=== PATIENT | male | born 1930 | race Caucasian/White ===

== ENCOUNTER 2017-07-14 10:22 | Inpatient (IN) | payer MEDICARE, MEDICAID ==
--- NOTE | 2017-07-14 12:37 | CT ---
CT BRAIN: Date: 07/14/17 HISTORY: Altered mental status. TECHNIQUE: Noncontrast enhanced CT images of brain obtained from the base of the skull through the vertex. Brain and bone windows are obtained. FINDINGS: Noncontrast enhanced CT images of the brain demonstrate diffuse cortical atrophy and deep white matte r ischemic changes. An old area of stroke is seen in the left frontal lobe. No evidence of acute intr acranial masses, hemorrhages, or strokes. CT appearance is stable. IMPRESSION: 1. Cortical atrophy and deep white matter ischemic changes. 2. Old left frontal lobe area of stroke. POS: [facility]
--- NOTE | 2017-07-14 12:38 | RAD ---
AP VIEW CHEST: Date: 07/14/17 HISTORY: Altered mental status. FINDINGS: Comparison made to previous exam from 08/04/15. AP view of chest demonstrates ectasia and calcification of the aorta. Pulmonary vascular congestion i s seen. No evidence of effusions, pneumonia, or pneumothorax seen. IMPRESSION: Unremarkable AP view chest. POS: [facility]
[2017-07-14 13:15] LABS: Band 5 % (5-11); Hemoglobin 8.9 g/dL (14.0-18.0); Lymphocytes 10 % (21-51); MDiff Complete? YES; Mean Corpuscular Hemoglobin 32.4 pg (27.0-31.0); Mean Corpuscular Volume 98.4 fl (80.0-94.0); Mean Platelet Volume 5.6 fL (7.4-10.4); Monocytes 17 % (0-10); Neutrophil 67 % (42-75); Platelet Count 119 thou/uL (130-400); RBC Distribution Width 14.7 % (11.5-14.5); Red Blood Cell (RBC) Count 2.75 mill/uL (4.70-6.10); White Blood Cell (WBC) Count 4.6 thou/uL (4.8-10.8)
[2017-07-14 13:20] LABS: ALT (SGPT) 7 U/L (8-55); AST (SGOT) 17 U/L (5-34); Albumin 2.3 g/dL (3.4-4.8); Alkaline Phosphatase 83 U/L (40-150); Anion Gap 14 mmol/L (10-20); BUN (Urea Nitrogen) 52 mg/dL (8.4-25.7); Bilirubin, Total 1.5 mg/dL (0.2-1.2); CK (CPK) 9 U/L (30-200); Calc. Creatinine Clearance 0 mL/min (70-130); Calcium 9.8 mg/dL (7.8-10.44); Carbon Dioxide 24 mmol/L (23-31); Chloride 107 mmol/L (98-107); Estimated GFR-MDRD 30; Globulin 5.6 g/dL (2.4-3.5); Glucose 69 mg/dL (83-110); Lipase 11 U/L (8-78); Potassium 3.8 mmol/L (3.5-5.1); Protein, Total 7.9 g/dL (5.8-8.1); Sodium 141 mmol/L (136-145)
[2017-07-14 13:24] LABS: CKMB 0.7 ng/mL (0-6.6); Troponin I 0.043 ng/mL (< 0.028)
[2017-07-14] MEDS ORDERED: Acetaminophen 325 MG TAB PO PRN (13:43)
[2017-07-14] MEDS ORDERED: Guaifenesin DM 100-10/5 ML UDCUP PO PRN (13:43)
[2017-07-14] MEDS ORDERED: Vancomycin HCl 1 GM in Sodium Chloride 0.9% 250 ML 250 ML IVPB SCH (13:45)
[2017-07-14] MEDS ORDERED: Cefepime 1 GM in Sodium Chloride 0.9% 100 ML IVPB SCH (13:45)
[2017-07-14] MEDS ORDERED: Levofloxacin 750 mg/D5W 250 MG in Premix Bag 1 BAG IVPB SCH (13:45)
[2017-07-14] MEDS ORDERED: Sodium Chloride 0.9% 1,000 ML IV SCH (13:45)
[2017-07-14 14:45] LABS: Bilirubin Negative (Negative); Blood, Urine Small (Negative); Clarity CLEAR (Clear); Glucose, Urine (Dipstick) Negative (Negative); Leukocyte Negative (Negative); Nitrite Negative (Negative); Protein, Urine (Dipstick) Trace mg/dL (Neg-Trace); Specific Gravity, Urine 1.018 (1.002-1.036); pH, Urine 6.5 (5.0-9.0)
[2017-07-14 14:47] LABS: Bacteria/HPF None Seen HPF (None Seen); Hyaline Casts/LPF 0-3 HYALINE CAST LPF (0-3 Hyaline); Pathc Cast-AUWi Flag 0.27 (0-2.49); Squamous Epithelial 0-3 HPF (0-3); WBC/HPF 0-3 HPF (0-3)
[2017-07-14 15:46] VITALS: BMI 27.9
[2017-07-14] MEDS: Cefepime 1 GM, Admixture Fee 1 EACH in Sterile Water 10 ML SLOW IVP SCH (16:14)
[2017-07-14 16:55] LABS: Lactic Acid 3.1 mmol/L (0.5-2.2)
[2017-07-14] MEDS ORDERED: Vancomycin HCl 1.25 GM in Sodium Chloride 0.9% 250 ML 250 ML IVPB SCH (18:00)
--- NOTE | 2017-07-14 18:07 | HP ---
REASON FOR ADMISSION: Sepsis, acute kidney injury, acute encephalopathy, dehydration, dysphagia with likely aspiration, HISTORY OF PRESENT ILLNESS: Please note majority of this history is obtained by my talking to ER physician, ER records, [facility] records, and prior medical records as patient is not oriented and is essentially keeps repeating thank you over and over again. Per [facility] records, patient was confused and was mumbling. He was only responding to painful stimuli. All of this happened around 6:30 in the morning. He normally is alert, feeds himself and sits in a chair at [facility]. On arrival here, patient is not oriented and very lethargic with barely opening eyes to touch. 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 CURRENT MEDICATIONS: Patient is on Depakote extended release 250 mg p.o. twice daily, gabapentin 100 mg p.o. 3 times daily and 300 mg p.o. at bedtime, vitamin D 2000 units p.o. daily, Cardura 1 mg p.o. at bedtime, Lasix 20 mg p.o. daily, Lopressor 50 mg p.o. twice daily, Meloxicam 15 mg p.o. daily, Flomax 0.8 mg p.o. daily, levothyroxine 25 mcg p.o. daily, Zoloft 100 mg p.o. daily, Flonase p.r.n., Ultram p.r.n., MiraLax 17 g daily, aspirin 81 mg p.o. daily, Singulair 10 mg p.o. daily, magnesium oxide 400 mg p.o. q.p.m., Lipitor 5 mg p.o. at bedtime. ALLERGIES: No known drug allergies. PERSONAL HISTORY: Patient is at [facility] resident. Does not abuse alcohol or drugs per prior records. He quit smoking in 1965 prior to which smoked 3 packs a day for nearly 20 years. He drank heavily as well up until his hospitalization in [address] Garces's notes. FAMILY HISTORY: Father in his early 70s and has had history of CVA. Mother in her early 80s of old age. He has 3 brothers and 5 sisters, two of the brothers at childbirth, out of 5 sisters 2 at childbirth, one of stroke. Patient has five children, one in a motor vehicle accident. REVIEW OF SYSTEMS: Cannot be obtained as patient is not oriented at present. PHYSICAL EXAMINATION: GENERAL: The patient is an 87-year-old male who is currently not oriented and is lethargic. VITAL SIGNS: Blood pressure 170/80, pulse 60 per minute, respiratory rate 20 per minute, temperature 97.8 degrees Fahrenheit, saturating 95% on room air. NECK: Supple, no elevated JVD. HEENT: Extraocular muscles intact. Pupils reacting to light. Oral cavity mucous membranes are dry. No exudates or congestion. CARDIOVASCULAR: S1, S2 heard. Regular rhythm. RESPIRATORY SYSTEM: Air entry 1+ bilateral. Scattered rhonchi plus bilateral. ABDOMEN: Soft, bowel sounds heard. No tenderness, rigidity or guarding. EXTREMITIES: No peripheral edema or calf tenderness. VASCULAR: Peripheral pulses 1+ bilateral. No ischemic ulcerations or gangrene. CENTRAL NERVOUS SYSTEM: No gross focal signs seen. 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 He is not oriented and is lethargic at present. PSYCHIATRIC: Cannot be assessed as patient is not oriented at present. LABORATORY DATA: CT brain done shows old left frontal lobe CVA. No acute infarct seen. There is cortical atrophy and deep white matter ischemic changes. Chest x-ray done shows chronic changes in the lungs. There was pulmonary vascular congestion as well. BNP is 937, albumin is 2.3, lipase is 11. TSH 4.1. Valproic acid 28.1. Troponin I 0.04, CK-MB 0.7, BUN 52, creatinine 2.0, glucose 69, lactic acid is 2.9, total bilirubin 1.5. Ammonia levels are 25. White count of 4.6, H and H 8.9 and 27, platelet count is 119, MCV is 98 with 67% neutrophils and 5% bands. CLINICAL IMPRESSION AND PLAN: The patient will be admitted to medical floor for likely sepsis with acute kidney injury and severe dehydration. He also has elevated BNP with mild pulmonary vascular congestion. Rodriguez cultures will be obtained including blood and urine. We will also obtain respiratory cultures if he can provide one. He will be on broad spectrum antibiotics including cefepime, Levaquin, and vancomycin based on renal function. We will gently hydrate him with normal saline at 100 mL per hour. We will continue his Flomax at 0.4 mg b.i.d., Singulair 10 mg p.o. q.p.m., Lopressor 25 mg twice daily, DuoNeb q.6 hourly, doxazosin 1 mg at bedtime, Depakote extended release 250 mg twice daily and aspirin 81 mg daily. We will obtain echo with 2D Doppler for left ventricular function. Once patient awakens fully, then we will gently diurese him. He has out of hospital DNR, that has accompanied him from [facility], which has been dated and signed on 07/11/2006 and we will continue the same DNR status here. We will also consult pelt inspector on-call, Dr. Butler for acute kidney injury likely due to dehydration. Patient normally does not ambulate per [facility] records, but he usually sits in a chair and converses and feeds self per [facility] records. We will obtain a speech evaluation as well. He is on thickened liquids at [facility]. RAYSHAWN
[2017-07-14] MEDS: Dextrose 5 % And 0.9 % NaCl 1,000 ML IV SCH (18:20)
[2017-07-14] MEDS: Docusate 100 MG CAP PO SCH (20:04)
[2017-07-14] MEDS: Famotidine 20 MG TAB PO SCH (20:04)
[2017-07-14] MEDS: Doxazosin Mesylate 1 MG TAB PO SCH (20:04)
[2017-07-14] MEDS: Montelukast Sodium 10 mg Tablet PO SCH (20:06)
[2017-07-14] MEDS: Tamsulosin HCl 0.4 MG CAP PO SCH (20:06)
[2017-07-14] MEDS: Metoprolol Tartrate 25 MG TAB PO SCH (20:06)
[2017-07-14] MEDS ORDERED: FLU VACC TS2017-18 (>65YR) 0.5 ML SYRINGE IM ONE (21:00)
[2017-07-15] MEDS: Dextrose 5 % And 0.9 % NaCl 1,000 ML IV SCH ×3 (04:30→22:17)
[2017-07-15] MEDS ORDERED: Levothyroxine Sodium 25 MCG TAB PO SCH (06:00)
--- NOTE | 2017-07-15 06:13 | CON ---
DATE OF CONSULTATION: 07/14/2017 CONSULTING PHYSICIAN: Marilee Holloway M.D. REASON FOR CONSULTATION: Acute kidney injury. REASON FOR ADMISSION: Sepsis and abnormal labs and encephalopathy. HISTORY OF PRESENT ILLNESS: This is an 87-year-old male with history of CVA, hypertension, hyperlipi demia, BPH, who came to the hospital with altered mentation and was found to have possible sepsis and acute kidney injury and Nephrology was consulted. The patient's baseline creatinine is around 1.5 t o 1.6 and today it was found to be 2.09 and he had white blood count 4.6, hemoglobin is 8.9. The pat iehamilton is not able to give good history, was confused and most of the records from the review of the re cords. No nausea, vomiting, no chest pain reported to me. PAST MEDICAL HISTORY: Positive for CVA, hypertension, hyperlipidemia, BPH, hypothyroidism, depressio n, and COPD. PAST SURGICAL HISTORY: Back surgery, vasectomy. HOME MEDICATIONS: Depakote, gabapentin, vitamin D, Cardura, Lasix, Lopressor, meloxicam, Flomax, lev othyroxine, Flonase, aspirin, Singulair, magnesium . ALLERGIES: No known drug allergies. SOCIAL HISTORY: No smoking, alcohol or illicit drug abuse. FAMILY HISTORY: Positive for CVA. REVIEW OF SYSTEMS: Could not be obtained as he is confused. PHYSICAL EXAMINATION: GENERAL: Elderly male in no apparent distress. VITAL SIGNS: Temperature 98.3, pulse 63, respirations 20, blood pressure . HEENT: Atraumatic. Oral mucosa is dry. NECK: Supple. CARDIOVASCULAR: S1, S2. Rate and rhythm regular. RESPIRATORY: Clear. GASTROINTESTINAL: Abdomen is soft. MUSCULOSKELETAL: No tenderness. No edema. DERMATOLOGIC: No skin rash. NEUROLOGICAL: Confused. LABORATORY DATA: Potassium 3.8, BUN is 52, creatinine is 2.09. Hemoglobin is 8.9. ASSESSMENT AND PLAN: 1. Acute kidney injury on chronic kidney disease stage 3, most likely volume depletion. Agree with hydration as tolerated. 2. Hypoalbuminemia. 3. Pyuria, rule out infection. 4. Altered mentation, most likely medication and possibly uremia. 5. Anemia, rule out bleed. 6. Hypertension. Titrate medications. Continue on hydration. Continue supportive care. Avoid nephrotoxins. Renally dose all the medicine s and we will follow up monitor vancomycin level. We will follow. Thank you for the consultation.
[2017-07-15 06:34] LABS: ALT (SGPT) 7 U/L (8-55); AST (SGOT) 16 U/L (5-34); Alkaline Phosphatase 72 U/L (40-150); Anion Gap 11 mmol/L (10-20); BUN (Urea Nitrogen) 44 mg/dL (8.4-25.7); Bilirubin, Total 1.7 mg/dL (0.2-1.2); Calc. Creatinine Clearance 33 mL/min (70-130); Calcium 9.1 mg/dL (7.8-10.44); Carbon Dioxide 23 mmol/L (23-31); Chloride 113 mmol/L (98-107); Estimated GFR-MDRD 33; Globulin 5.1 g/dL (2.4-3.5); Glucose 84 mg/dL (83-110); Potassium 3.3 mmol/L (3.5-5.1); Protein, Total 7.1 g/dL (5.8-8.1); Sodium 144 mmol/L (136-145)
[2017-07-15 06:47] LABS: Free T4 (Free Thyroxine) 0.68 ng/dL (0.70-1.48); Thyroid Stimulating Hormone 3.9408 uIU/mL (0.35-4.94)
[2017-07-15 07:50] LABS: Hemoglobin 7.8 g/dL (14.0-18.0); Mean Corpuscular HGB CONC 32.1 g/dL (32.0-36.0); Mean Corpuscular Hemoglobin 31.6 pg (27.0-31.0); Mean Corpuscular Volume 98.4 fl (80.0-94.0); Mean Platelet Volume 5.8 fL (7.4-10.4); Platelet Count 108 thou/uL (130-400); RBC Distribution Width 14.5 % (11.5-14.5); Red Blood Cell (RBC) Count 2.48 mill/uL (4.70-6.10); White Blood Cell (WBC) Count 5.7 thou/uL (4.8-10.8)
[2017-07-15 08:25] LABS: Band 4 % (5-11); Eosinophils 2 % (0-10); Lymphocytes 11 % (21-51); MDiff Complete? YES; Monocytes 17 % (0-10); Neutrophil 66 % (42-75); PLT Morphology Comment Appears Decreased; Polychromasia SLIGHT = 2-3 cells (100X) (0-2/hpf)
[2017-07-15] MEDS: Enoxaparin Sodium 30 MG/0.3 ML SYRINGE SC SCH (08:43)
--- NOTE | 2017-07-15 10:13 | PRG ---
DATE OF SERVICE: 07/15/2017 SUBJECTIVE: Patient was seen and examined at bedside and overnight events noted. Patient denies any shortness of breath or chest pain or palpitation. No history of nausea or vomiting or diarrhea or f ever or chills or cramps. OBJECTIVE: GENERAL: This is an elderly male in no apparent distress. VITAL SIGNS: Temperature 98.8, pulse 82, respiratory rate 16, blood pressure 174/87. HEENT: Atraumatic, normocephalic. Oral mucosa is moist. NECK: Supple. CARDIOVASCULAR: S1, S2 heard. Rate and rhythm regular. RESPIRATORY: Clear to auscultation. GASTROINTESTINAL: Abdomen is soft. MUSCULOSKELETAL: No tenderness. No edema. DERMATOLOGIC: No skin rash. NEUROLOGIC: Alert and awake and oriented x3. No focal neurologic deficits. Moving all the extremiti es. PSYCHIATRIC: Mood and affect normal. LABORATORY DATA: Potassium is 3.3, BUN is 44, creatinine is 1.9. ASSESSMENT AND PLAN: 1. Acute kidney injury on chronic kidney disease stage 3. Renal function is getting better. Creati nine 1.9 from 2.09. 2. Continue hydration. 3. Hypokalemia, replaced. 4. Hyperchloremia. 5. Hypoalbuminemia. 6. Altered mentation. 7. Anemia. 8. Hypertension, stable. Continue medications and monitor blood pressure. Overall, renal function is better. We will follow.
[2017-07-15] MEDS: Polyethylene Glycol 3350 17 GM Packet PO SCH (10:34)
[2017-07-15] MEDS: Docusate 100 MG CAP PO SCH ×2 (10:35→20:48)
[2017-07-15] MEDS: Tamsulosin HCl 0.4 MG CAP PO SCH ×2 (10:35→20:48)
[2017-07-15] MEDS: Famotidine 20 MG TAB PO SCH ×2 (10:35→20:48)
[2017-07-15] MEDS: Metoprolol Tartrate 25 MG TAB PO SCH ×2 (10:36→19:16)
--- NOTE | 2017-07-15 11:10 | PDOC.PN ---
- Subjective Encounter Start Date: 07/15/17 Encounter Start Time: 09:40 Subjective: awake, not sure he is oriented -: is moving all extremities - Objective Resuscitation Status: Resuscitation Status DNR:Do Not Resuscitate MAR Reviewed: Yes Vital Signs & Weight: Vital Signs (12 hours) Temp Pulse Resp BP Pulse Ox 07/15/17 08:44 97 07/15/17 08:41 74 18 97 07/15/17 08:00 98.8 F 74 18 174/87 H 93 L 07/15/17 06:35 98.7 F 92 20 174/79 H 93 L 07/15/17 00:00 98.8 F 77 20 172/72 H 93 L Weight Weight 184 lb I&O: 07/14/17 07/15/17 07/16/17 06:59 06:59 06:59 Intake Total 900 Output Total 1000 Balance -100 Result Diagrams: 07/15/17 05:34 07/15/17 05:34 Additional Labs: Accuchecks 07/15/17 07/14/17 07/14/17 05:05 20:06 16:32 POC Glucose 82 76 68 L Phys Exam - Physical Examination HEENT: PERRLA, sclera anicteric dry mucosa Neck: no JVD, supple Respiratory: no wheezing, no rales Cardiovascular: RRR, no significant murmur Gastrointestinal: soft, non-tender, positive bowel sounds Musculoskeletal: no edema, pulses present Neurological: non-focal, moves all 4 limbs Psychiatric: A&O x 3 Dx/Plan (1) Sepsis Code(s): A41.9 - SEPSIS, UNSPECIFIED ORGANISM Status: Acute Qualifiers: Sepsis type: sepsis due to unspecified organism Qualified Code(s): A41.9 - Sepsis, unspecified organism (2) Severe dehydration Code(s): E86.0 - DEHYDRATION Status: Acute (3) Acute encephalopathy Code(s): G93.40 - ENCEPHALOPATHY, UNSPECIFIED Status: Acute (4) KIM (acute kidney injury) Code(s): N17.9 - ACUTE KIDNEY FAILURE, UNSPECIFIED Status: Acute (5) Metabolic acidosis Code(s): E87.2 - ACIDOSIS Status: Acute (6) FTT (failure to thrive) in adult Status: Chronic (7) Moderate protein malnutrition Code(s): E44.0 - MODERATE PROTEIN-CALORIE MALNUTRITION Status: Chronic (8) Anemia Code(s): D64.9 - ANEMIA, UNSPECIFIED Status: Chronic (9) H/O: CVA (cerebrovascular accident) Code(s): Z86.73 - PRSNL HX OF TIA (TIA), AND CEREB INFRC W/O RESID DEFICITS Status: Chronic Comment: old left frontal lobe cva (10) Hypoglycemia Code(s): E16.2 - HYPOGLYCEMIA, UNSPECIFIED Status: Acute (11) Dysphagia Code(s): R13.10 - DYSPHAGIA, UNSPECIFIED Status: Chronic Comment: on thickened diet at [facility] - Plan speech eval for oral intake -: continue iv fluids -: is on levaq, vanc and cefepime -: increase synthroid to 75mcg daily -: replace electrolytes, await culture results, PT eval * . Review of Systems - Medications/Allergies Allergies/Adverse Reactions: Allergies Allergy/AdvReac Type Severity Reaction Status Date / Time No Known Allergies Allergy Unverified 07/14/17 15:28 Medications: Current Medications Acetaminophen (Tylenol) 650 mg PO Q4H PRN PRN Reason: Headache/Fever or Pain Albuterol/Ipratropium (Duoneb) 3 ml NEB [id number] [facility] Last Admin: 07/15/17 08:41 Dose: 3 ml Aspirin (Aspirin Chewable) 81 mg PO DAILY [facility] Last Admin: 07/15/17 10:36 Dose: 81 mg Divalproex Sodium (Depakote Er) 250 mg PO BID [facility] Last Admin: 07/15/17 10:35 Dose: 250 mg Docusate Sodium (Colace) 100 mg PO BID [facility] Last Admin: 07/15/17 10:35 Dose: 100 mg Doxazosin Mesylate (Cardura) 1 mg PO HS [facility] Last Admin: 07/14/17 20:04 Dose: Not Given Enoxaparin Sodium (Lovenox) 30 mg SC 0900 [facility] Last Admin: 07/15/17 08:43 Dose: 30 mg Famotidine (Pepcid) 20 mg PO BID [facility] Last Admin: 07/15/17 10:35 Dose: 20 mg Guaifenesin/Dextromethorphan (Robitussin Dm) 15 ml PO Q4H PRN PRN Reason: Cough Cefepime HCl 1 gm/Miscellaneous Medication 1 each/ Sterile Water 10 mls @ 120 mls/hr SLOW IVP Q24HR@1600 [facility] Last Admin: 07/14/17 16:14 Dose: 10 mls Levofloxacin 250 mg/ Device 50 mls @ 100 mls/hr IVPB Q24HR [facility] Last Admin: 07/14/17 17:12 Dose: 50 mls Vancomycin HCl 1 gm/ Device 200 mls @ 200 mls/hr IVPB 1800 [facility] Dextrose/Sodium Chloride (D5 0.9% Ns) 1,000 mls @ 100 mls/hr IV .Q10H [facility] Last Admin: 07/15/17 04:30 Dose: Not Given Levothyroxine Sodium (Synthroid) 75 mcg PO 0600 [facility] Metoprolol Tartrate (Lopressor) 25 mg PO BID [facility] Last Admin: 07/15/17 10:36 Dose: 25 mg Miscellaneous Medication (Pharmacy To Dose) 1 each IVPB PRN PRN PRN Reason: Pharmacy to dose Montelukast Sodium (Singulair) 10 mg PO QPM [facility] Last Admin: 07/14/17 20:06 Dose: Not Given Polyethylene Glycol (Miralax) 17 gm PO DAILY [facility] Last Admin: 07/15/17 10:34 Dose: 17 gm Sertraline HCl (Zoloft) 100 mg PO DAILY [facility] Last Admin: 07/15/17 10:35 Dose: 100 mg Tamsulosin HCl (Flomax) 0.4 mg PO BID [facility] Last Admin: 07/15/17 10:35 Dose: 0.4 mg
[2017-07-15] MEDS: Cefepime 1 GM, Admixture Fee 1 EACH in Sterile Water 10 ML SLOW IVP SCH (16:41)
[2017-07-15] MEDS ORDERED: Vancomycin HCl 1 GM in Premix Bag 1 BAG IVPB SCH (18:00)
[2017-07-15] MEDS ORDERED: Metoprolol Tartrate 25 MG TAB PO SCH (19:00)
[2017-07-15] MEDS ORDERED: Amlodipine 10 MG TAB PO SCH (19:00)
[2017-07-15] MEDS ORDERED: hydrALAZINE 25 MG TAB PO SCH (19:00)
[2017-07-15] MEDS: Montelukast Sodium 10 mg Tablet PO SCH (20:48)
[2017-07-15] MEDS: Doxazosin Mesylate 1 MG TAB PO SCH (20:48)
[2017-07-16 05:40] LABS: Anion Gap 13 mmol/L (10-20); BUN (Urea Nitrogen) 35 mg/dL (8.4-25.7); Calc. Creatinine Clearance 39 mL/min (70-130); Calcium 9.8 mg/dL (7.8-10.44); Carbon Dioxide 22 mmol/L (23-31); Chloride 115 mmol/L (98-107); Estimated GFR-MDRD 40; Glucose 106 mg/dL (83-110); Sodium 147 mmol/L (136-145)
[2017-07-16] MEDS: Levothyroxine Sodium 75 MCG TAB PO SCH (05:40)
[2017-07-16] MEDS: Dextrose 5 % And 0.9 % NaCl 1,000 ML IV SCH ×2 (05:41→20:28)
[2017-07-16 05:44] LABS: Potassium 2.9 mmol/L (3.5-5.1)
[2017-07-16 06:14] LABS: Anisocytosis SLIGHT = 6-15 cells (100X) (0-5/hpf); Hemoglobin 8.3 g/dL (14.0-18.0); Lymphocytes 7 % (21-51); MDiff Complete? YES; Mean Corpuscular HGB CONC 31.6 g/dL (32.0-36.0); Mean Corpuscular Hemoglobin 31.4 pg (27.0-31.0); Mean Corpuscular Volume 99.3 fl (80.0-94.0); Mean Platelet Volume 6.1 fL (7.4-10.4); Monocytes 14 % (0-10); Neutrophil 79 % (42-75); PLT Morphology Comment Appears Decreased; Platelet Count 101 thou/uL (130-400); RBC Distribution Width 14.8 % (11.5-14.5); Red Blood Cell (RBC) Count 2.64 mill/uL (4.70-6.10); White Blood Cell (WBC) Count 6.4 thou/uL (4.8-10.8)
[2017-07-16] MEDS: Potassium Chloride 20 MEQ TAB PO SCH ×3 (09:22→20:26)
[2017-07-16] MEDS: Enoxaparin Sodium 30 MG/0.3 ML SYRINGE SC SCH (09:26)
[2017-07-16] MEDS: Tamsulosin HCl 0.4 MG CAP PO SCH ×2 (09:26→20:27)
[2017-07-16] MEDS: Famotidine 20 MG TAB PO SCH ×2 (09:26→20:27)
[2017-07-16] MEDS: Docusate 100 MG CAP PO SCH ×2 (09:26→20:27)
[2017-07-16] MEDS: hydrALAZINE 25 MG TAB PO SCH ×3 (09:27→20:26)
[2017-07-16] MEDS: Metoprolol Tartrate 25 MG TAB PO SCH ×2 (09:32→20:28)
[2017-07-16] MEDS: Polyethylene Glycol 3350 17 GM Packet PO SCH (09:32)
--- NOTE | 2017-07-16 11:13 | PDOC.PN ---
- Subjective Encounter Start Date: 07/16/17 Encounter Start Time: 08:25 Subjective: awake, not in distress -: follows verbal stimuli but needs repeated stimuli - Objective Resuscitation Status: Resuscitation Status DNR:Do Not Resuscitate MAR Reviewed: Yes Vital Signs & Weight: Vital Signs (12 hours) Temp Pulse Resp BP BP Pulse Ox 07/16/17 09:27 93 170/86 H 07/16/17 08:00 98.7 F 93 20 170/86 H 93 L 07/16/17 01:04 96 12 07/16/17 00:20 98.5 F 96 20 149/71 H 96 Weight Weight 184 lb I&O: 07/15/17 07/16/17 07/17/17 06:59 06:59 06:59 Intake Total 870 823 4855 Output Total 5862 119 4774 Balance -100 -650 400 Result Diagrams: 07/16/17 03:42 07/16/17 03:42 Additional Labs: Accuchecks 07/15/17 17:00 POC Glucose 130 H Phys Exam - Physical Examination HEENT: PERRLA, sclera anicteric dry mucosa Neck: no JVD, supple Respiratory: no wheezing, no rales Cardiovascular: RRR, no significant murmur Gastrointestinal: soft, non-tender, positive bowel sounds Musculoskeletal: no edema, pulses present Neurological: non-focal, moves all 4 limbs Dx/Plan (1) Sepsis Code(s): A41.9 - SEPSIS, UNSPECIFIED ORGANISM Status: Acute Qualifiers: Sepsis type: sepsis due to unspecified organism Qualified Code(s): A41.9 - Sepsis, unspecified organism (2) Severe dehydration Code(s): E86.0 - DEHYDRATION Status: Acute (3) Acute encephalopathy Code(s): G93.40 - ENCEPHALOPATHY, UNSPECIFIED Status: Acute (4) KIM (acute kidney injury) Code(s): N17.9 - ACUTE KIDNEY FAILURE, UNSPECIFIED Status: Acute (5) Metabolic acidosis Code(s): E87.2 - ACIDOSIS Status: Acute (6) FTT (failure to thrive) in adult Status: Chronic (7) Moderate protein malnutrition Code(s): E44.0 - MODERATE PROTEIN-CALORIE MALNUTRITION Status: Chronic (8) Anemia Code(s): D64.9 - ANEMIA, UNSPECIFIED Status: Chronic (9) H/O: CVA (cerebrovascular accident) Code(s): Z86.73 - PRSNL HX OF TIA (TIA), AND CEREB INFRC W/O RESID DEFICITS Status: Chronic Comment: old left frontal lobe cva (10) Hypoglycemia Code(s): E16.2 - HYPOGLYCEMIA, UNSPECIFIED Status: Acute (11) Dysphagia Code(s): R13.10 - DYSPHAGIA, UNSPECIFIED Status: Chronic Comment: on thickened diet at snf - Plan is on thickened liq diet -: likely has inadequate oral intake, will get calorie count -: might end up getting peg if counts are low and family agrees -: resp cs might be contaminated -: sod has improved to 147, replace K * . Review of Systems - Medications/Allergies Allergies/Adverse Reactions: Allergies Allergy/AdvReac Type Severity Reaction Status Date / Time No Known Allergies Allergy Unverified 07/14/17 15:28 Medications: Current Medications Acetaminophen (Tylenol) 650 mg PO Q4H PRN PRN Reason: Headache/Fever or Pain Albuterol/Ipratropium (Duoneb) 3 ml NEB [id number] [facility] Last Admin: 07/16/17 07:56 Dose: Not Given Aspirin (Aspirin Chewable) 81 mg PO DAILY [facility] Last Admin: 07/16/17 09:25 Dose: 81 mg Divalproex Sodium (Depakote Er) 250 mg PO BID [facility] Last Admin: 07/16/17 09:25 Dose: 250 mg Docusate Sodium (Colace) 100 mg PO BID [facility] Last Admin: 07/16/17 09:26 Dose: 100 mg Doxazosin Mesylate (Cardura) 1 mg PO HS [facility] Last Admin: 07/15/17 20:48 Dose: 1 mg Enoxaparin Sodium (Lovenox) 30 mg SC 0900 [facility] Last Admin: 07/16/17 09:26 Dose: 30 mg Famotidine (Pepcid) 20 mg PO BID [facility] Last Admin: 07/16/17 09:26 Dose: 20 mg Guaifenesin/Dextromethorphan (Robitussin Dm) 15 ml PO Q4H PRN PRN Reason: Cough Hydralazine HCl (Apresoline) 25 mg PO TID [facility] Last Admin: 07/16/17 09:27 Dose: 25 mg Cefepime HCl 1 gm/Miscellaneous Medication 1 each/ Sterile Water 10 mls @ 120 mls/hr SLOW IVP Q24HR@1600 [facility] Last Admin: 07/15/17 16:41 Dose: 10 mls Levofloxacin 250 mg/ Device 50 mls @ 100 mls/hr IVPB Q24HR [facility] Last Admin: 07/15/17 16:45 Dose: 50 mls Dextrose/Sodium Chloride (D5 0.9% Ns) 1,000 mls @ 100 mls/hr IV .Q10H [facility] Last Admin: 07/16/17 05:41 Dose: 1,000 mls Levothyroxine Sodium (Synthroid) 75 mcg PO 0600 [facility] Last Admin: 07/16/17 05:40 Dose: 75 mcg Metoprolol Tartrate (Lopressor) 25 mg PO BID [facility] Last Admin: 07/16/17 09:32 Dose: 25 mg Miscellaneous Medication (Pharmacy To Dose) 1 each IVPB PRN PRN PRN Reason: Pharmacy to dose Montelukast Sodium (Singulair) 10 mg PO QPM [facility] Last Admin: 07/15/17 20:48 Dose: 10 mg Polyethylene Glycol (Miralax) 17 gm PO DAILY [facility] Last Admin: 07/16/17 09:32 Dose: 17 gm Potassium Chloride (K-Dur) 40 meq PO Q6H [facility] Stop: 07/17/17 14:16 Last Admin: 07/16/17 09:22 Dose: 40 meq Sertraline HCl (Zoloft) 100 mg PO DAILY [facility] Last Admin: 07/16/17 09:26 Dose: 100 mg Tamsulosin HCl (Flomax) 0.4 mg PO BID [facility] Last Admin: 07/16/17 09:26 Dose: 0.4 mg
[2017-07-16] MEDS: Cefepime 1 GM, Admixture Fee 1 EACH in Sterile Water 10 ML SLOW IVP SCH (15:14)
[2017-07-16] MEDS: Doxazosin Mesylate 1 MG TAB PO SCH (20:27)
[2017-07-16] MEDS: Montelukast Sodium 10 mg Tablet PO SCH (20:27)
--- NOTE | 2017-07-16 21:42 | PRG ---
DATE OF SERVICE: 07/16/2017 SUBJECTIVE: Patient was seen and examined at bedside and overnight events noted. Patient denies any shortness of breath or chest pain or palpitation. No history of nausea or vomiting or diarrhea or f ever or chills or cramps. OBJECTIVE: GENERAL: This is an elderly male in no apparent distress. VITAL SIGNS: Temperature 98.3, pulse 111, respiratory rate 20, blood pressure 151/86. HEENT: Atraumatic, normocephalic. Oral mucosa is moist. NECK: Supple. CARDIOVASCULAR: S1, S2 heard. Rate and rhythm regular. RESPIRATORY: Clear to auscultation. GASTROINTESTINAL: Abdomen is soft. MUSCULOSKELETAL: No tenderness. No edema. DERMATOLOGIC: No skin rash. NEUROLOGIC: Alert and awake and oriented x3. No focal neurologic deficits. Moving all the extremit ies. PSYCHIATRIC: Mood and affect normal. LABORATORY DATA: Potassium is 2.9, sodium is 147, BUN is 35, creatinine is 1.64. ASSESSMENT AND PLAN: 1. Acute kidney injury on chronic kidney disease. Renal function is getting better. 2. Hypernatremia. 3. Hypokalemia. Replace and monitor. 4. Hypoalbuminemia. 5. Altered mentation. 6. Anemia. 7. Hypertension. 8. Continue IV hydration as tolerated. We will monitor renal function.
[2017-07-17] MEDS: Potassium Chloride 20 MEQ TAB PO SCH ×3 (02:55→16:00)
[2017-07-17 04:39] LABS: Anion Gap 14 mmol/L (10-20); BUN (Urea Nitrogen) 33 mg/dL (8.4-25.7); Calc. Creatinine Clearance 41 mL/min (70-130); Calcium 10.2 mg/dL (7.8-10.44); Carbon Dioxide 20 mmol/L (23-31); Chloride 120 mmol/L (98-107); Estimated GFR-MDRD 43; Glucose 115 mg/dL (83-110); Potassium 3.8 mmol/L (3.5-5.1); Sodium 150 mmol/L (136-145)
[2017-07-17] MEDS: Levothyroxine Sodium 75 MCG TAB PO SCH (05:25)
[2017-07-17] MEDS: Dextrose 5 % And 0.9 % NaCl 1,000 ML IV SCH (05:26)
[2017-07-17 05:35] LABS: Band 2 % (5-11); Eosinophils 3 % (0-10); Hemoglobin 7.7 g/dL (14.0-18.0); Lymphocytes 6 % (21-51); MDiff Complete? YES; Macrocytosis SLIGHT = 6-15 cells (100X) (0-5/hpf); Mean Corpuscular HGB CONC 31.4 g/dL (32.0-36.0); Mean Corpuscular Hemoglobin 31.8 pg (27.0-31.0); Mean Platelet Volume 6.4 fL (7.4-10.4); Monocytes 8 % (0-10); Neutrophil 81 % (42-75); PLT Morphology Comment Appears Decreased; Platelet Count 92 thou/uL (130-400); Red Blood Cell (RBC) Count 2.43 mill/uL (4.70-6.10); White Blood Cell (WBC) Count 5.9 thou/uL (4.8-10.8)
--- NOTE | 2017-07-17 10:38 | CT ---
CT CHEST NONCONTRAST: History: Chest pain, dyspnea. FINDINGS: No comparison. Small amount of bilateral pleural fluid is present with bibasilar atelectasis. There is minimal peric ardial fluid. Lack of contrast limits evaluation of the mediastinum. There is calcification in the arterial structu res. Enlarged lymph nodes are present throughout each space of the mediastinum. The largest are at th e right paratracheal level (6.2 x 6.2 x 5.4 cm) and at the subcarinal level (9.2 x 5.8 x 3.8 cm). The re are degenerative changes of the thoracic spine. The inferior most images show a cyst arising from the right kidney and stones within the dependent portion of the gallbladder. IMPRESSION: 1. Bulky mediastinal adenopathy. Cause is not evident. The subcarinal adenopathy could likely be samp led with bronchoscopy. Please consider pulmonary medicine evaluation. 2. Bilateral pleural effusions with bibasilar atelectasis. Small pericardial effusion. 3. Atherosclerosis. 4. Cholelithiasis. POS: [facility]
--- NOTE | 2017-07-17 10:40 | PDOC.PN ---
- Subjective Encounter Start Date: 07/17/17 Encounter Start Time: 08:40 Subjective: awakens, not oriented -: not in distress - Objective Resuscitation Status: Resuscitation Status DNR:Do Not Resuscitate MAR Reviewed: Yes Vital Signs & Weight: Vital Signs (12 hours) Temp Pulse Resp BP Pulse Ox 07/17/17 08:00 98.3 F 99 20 169/82 H 94 L 07/17/17 06:34 99 12 95 Weight Admit Weight 184 lb Weight 184 lb I&O: 07/16/17 07/17/17 07/18/17 06:59 06:59 06:59 Intake Total 200 3160 Output Total 850 1650 Balance -650 1510 Result Diagrams: 07/17/17 03:58 07/17/17 03:58 Additional Labs: Accuchecks 07/17/17 07/16/17 07/16/17 06:31 17:22 11:51 POC Glucose 118 H 128 H 111 H Phys Exam - Physical Examination HEENT: PERRLA, sclera anicteric dry mucosa Neck: no JVD, supple Respiratory: no wheezing, no rales rhonchi+ Cardiovascular: RRR, no significant murmur Gastrointestinal: soft, non-tender, positive bowel sounds Musculoskeletal: no edema, pulses present Neurological: non-focal right hemiparesis Dx/Plan (1) Sepsis Code(s): A41.9 - SEPSIS, UNSPECIFIED ORGANISM Status: Acute Qualifiers: Sepsis type: sepsis due to unspecified organism Qualified Code(s): A41.9 - Sepsis, unspecified organism (2) Severe dehydration Code(s): E86.0 - DEHYDRATION Status: Acute (3) Acute encephalopathy Code(s): G93.40 - ENCEPHALOPATHY, UNSPECIFIED Status: Acute (4) KIM (acute kidney injury) Code(s): N17.9 - ACUTE KIDNEY FAILURE, UNSPECIFIED Status: Acute (5) Metabolic acidosis Code(s): E87.2 - ACIDOSIS Status: Acute (6) FTT (failure to thrive) in adult Status: Chronic (7) Moderate protein malnutrition Code(s): E44.0 - MODERATE PROTEIN-CALORIE MALNUTRITION Status: Chronic (8) Anemia Code(s): D64.9 - ANEMIA, UNSPECIFIED Status: Chronic (9) H/O: CVA (cerebrovascular accident) Code(s): Z86.73 - PRSNL HX OF TIA (TIA), AND CEREB INFRC W/O RESID DEFICITS Status: Chronic Comment: 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 - Plan dehydration and electrolytes are slowly being corrected -: sputum grew mrsa (his oral cavity is very dry, not sure if this is true spu -: -scot sample although epithelial cells are low), will get CT chest -: consult -: is on levaq and cefepime, d5w for hypernatremia * . I am unable to reach his son Mr.Gargiulo Weeks over telephone for consent ?peg. Review of Systems - Medications/Allergies Allergies/Adverse Reactions: Allergies Allergy/AdvReac Type Severity Reaction Status Date / Time No Known Allergies Allergy Unverified 07/14/17 15:28 Medications: Current Medications Acetaminophen (Tylenol) 650 mg PO Q4H PRN PRN Reason: Headache/Fever or Pain Albuterol/Ipratropium (Duoneb) [address] NEB [id number] [facility] Last Admin: 07/17/17 06:34 Dose: 3 ml Aspirin (Aspirin Chewable) [address] [facility] Last Admin: 07/16/17 09:25 Dose: 81 mg Divalproex Sodium (Depakote Er) [address] [facility] Last Admin: 07/16/17 20:27 Dose: 250 mg Docusate Sodium (Colace) [address] [facility] Last Admin: 07/16/17 20:27 Dose: 100 mg Doxazosin Mesylate (Cardura) [address] [facility] Last Admin: 07/16/17 20:27 Dose: 1 mg Enoxaparin Sodium (Lovenox) [address] [facility] Last Admin: 07/16/17 09:26 Dose: 30 mg Famotidine (Pepcid) [address] [facility] Last Admin: 07/16/17 20:27 Dose: 20 mg Guaifenesin/Dextromethorphan (Robitussin Dm) 15 ml PO Q4H PRN PRN Reason: Cough Hydralazine HCl (Apresoline) [address] [facility] Last Admin: 07/16/17 20:26 Dose: 25 mg Cefepime HCl 1 gm/Miscellaneous Medication 1 each/ Sterile Water 10 mls @ 120 mls/hr SLOW IVP Q24HR@1600 [facility] Last Admin: 07/16/17 15:14 Dose: 10 mls Levofloxacin 250 mg/ Device 50 mls @ 100 mls/hr IVPB Q24HR [facility] Last Admin: 07/16/17 17:16 Dose: 50 mls Dextrose/Water (D5w) 1,000 mls @ 100 mls/hr IV .Q10H [facility] Levothyroxine Sodium (Synthroid) [address] [facility] Last Admin: 07/17/17 05:25 Dose: 75 mcg Metoprolol Tartrate (Lopressor) [address] [facility] Last Admin: 07/16/17 20:28 Dose: 25 mg Montelukast Sodium (Singulair) [address] [facility] Last Admin: 07/16/17 20:27 Dose: 10 mg Polyethylene Glycol (Miralax) [address] [facility] Last Admin: 07/16/17 09:32 Dose: 17 gm Potassium Chloride (K-Dur) [address] [facility] Stop: 07/17/17 14:16 Last Admin: 07/17/17 02:55 Dose: 40 meq Sertraline HCl (Zoloft) [address] [facility] Last Admin: 07/16/17 09:26 Dose: 100 mg Tamsulosin HCl (Flomax) 0.[address] [facility] Last Admin: 07/16/17 20:27 Dose: 0.4 mg
[2017-07-17] MEDS: Metoprolol Tartrate 25 MG TAB PO SCH ×2 (10:51→20:31)
[2017-07-17] MEDS: Docusate 100 MG CAP PO SCH ×2 (10:51→20:30)
[2017-07-17] MEDS: Tamsulosin HCl 0.4 MG CAP PO SCH ×2 (10:52→20:30)
[2017-07-17] MEDS: hydrALAZINE 25 MG TAB PO SCH ×3 (10:52→20:30)
[2017-07-17] MEDS: Polyethylene Glycol 3350 17 GM Packet PO SCH (10:53)
[2017-07-17] MEDS: Dextrose 5% in Water 1,000 ML IV SCH ×2 (11:37→17:54)
[2017-07-17] MEDS: Famotidine 20 MG TAB PO SCH ×2 (11:38→20:31)
[2017-07-17] MEDS: Enoxaparin Sodium 30 MG/0.3 ML SYRINGE SC SCH (11:39)
[2017-07-17] MEDS: Cefepime 1 GM, Admixture Fee 1 EACH in Sterile Water 10 ML SLOW IVP SCH (18:41)
[2017-07-17] MEDS: Montelukast Sodium 10 mg Tablet PO SCH (20:30)
[2017-07-17] MEDS: Doxazosin Mesylate 1 MG TAB PO SCH (20:31)
--- NOTE | 2017-07-17 21:08 | PRG ---
DATE OF SERVICE: 07/17/2017 SUBJECTIVE: Patient was seen and examined at bedside and overnight events noted. Patient denies shortness of breath or cramps or chest pain or palpitation. No Nausea or vomiting or diarrhea or fever or chills. OBJECTIVE: GENERAL: This is a well-developed male in no apparent distress. VITAL SIGNS: Temperature 98.3, pulse 97, respiratory rate 18, blood pressure 148/84. Musculoskeletal : No tenderness, No edema HEENT: Atraumatic normocephalic Neck: Supple Cardiovascular: S1S2 heard, Rate and rhythm regular Respiratory: Clear to auscultation Gastrointestinal: Abdomen is soft Dermatologic : No skin rash Neurologic: Alert and awake and oriented X3 No focal neurologic deficits. Moving all the extremities. Psychiatric: Mood and affect normal LABORATORY DATA: Potassium is 3.8, BUN is 33, creatinine is 1.5. ASSESSMENT AND PLAN: 1. Hypernatremia. Continue free water. 2. Acute kidney injury. Renal function is stable. 3. Hypokalemia, replaced. 4. Hypoalbuminemia. 5. Anemia. 6. Hypertension. 7. We will change IV fluids to D5 water today and continue free water as tolerated with flushes. We will follow. MTDD
[2017-07-18] MEDS: Dextrose 5% in Water 1,000 ML IV SCH (00:24)
--- NOTE | 2017-07-18 00:45 | CON ---
DATE OF CONSULTATION: 07/17/2017 REASON FOR CONSULTATION: Concern regarding possible pneumonia. 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 It became so confused that he was then transferred for evaluation. On arrival, his BP was 170/80, pulse 60, breathing 20 times per minute, temperature is normal. O2 sats were 95% on room air. The admit exam shows some lethargy and disorientation and white cell count 4.6, hemoglobin 8.9 with MCV 98, platelets 119,000 with 67% neutrophils and 5% bands , 10% lymphocytes, 17% monocytes. The initial labs with creatinine 1.92, potassium 3.3, bilirubin 1.7. Transaminases normal now. Alkaline phosphatase 72 with albumin 2.0. Free T4 was 0.68 and free T3 less than 1.0. TSH was 3.9. Urinalysis was unremarkable. Valproic acid levels were 28. The patient had a CT of brain which was not remarkable except for chronic changes. Chest x-ray was not remarkable either. A CT scan of the chest was done 3 days after admission and this was a noncontrast study. There was minimal pericardial fluid. There was calcification of arterial structures, but the main findings were enlarged lymph nodes throughout the mediastinum, the largest one in the right peritracheal level and at the subcarinal level. The patient currently is awake, but he is confused and could not even tell me his name, was only able to do so after some insistence, but he certainly did not know where he was or the date. All the review of systems questions were negative, but again those answers are certainly not reliable. I spoke with the nurse at the [facility] and she said that he had no respiratory symptoms or aspiration. No diarrhea recorded, but he apparently had some respiratory symptoms a couple of weeks ago and had been treated with Levaquin for "pneumonia." PAST MEDICAL HISTORY: Includes CVA, hypertension, dyslipidemia, BPH, some form back surgery, and we do not have a lot of information regarding that. Vasectomy , hypothyroidism, depression, chronic obstructive pulmonary disease. MEDICATIONS: Currently, he is receiving Tylenol, DuoNeb, cefepime, dextrose, Depakote, Colace, Cardura, Lovenox, Pepcid, levofloxacin, metoprolol, montelukast, polyethylene glycol, Zoloft, and tamsulosin. ALLERGIES: None. SOCIAL HISTORY: [facility] resident. Former smoker, quit in 67 and also had a history of excessive alcoholic beverage intake reportedly. FAMILY HISTORY: CVA. Otherwise normal. PHYSICAL EXAMINATION: VITAL SIGNS: T-max 98.8, blood pressure 140/80, pulse 97, respirations 14-20, O2 saturation 95%. SKIN: Remarkable for Martinez catheter and peripheral IV access. No lymphadenopathy in the palpable areas. HEENT: Ocular movements are intact. Conjunctivae normal. Sclerae white. Pupils are equal and reactive. Oral cavity with only a few remaining teeth, remaining ones with marked decay. Gum disease is noted. NECK: Supple. No jugular venous distention. LUNGS: Symmetric air entry. No obvious crackles or wheezing. HEART: S1, S2, regular rate. No S3 or S4. ABDOMEN: Soft. No organomegaly, no ascites. No tenderness. No bladder distention. GENITOURINARY: Normal. EXTREMITIES: No joint inflammatory activity. Pulses are 1+ in dorsalis pedis. NEUROLOGIC: Plantar responses are flexor. No clonus. Strength in all 4 extremities appears to be symmetric. He is awake, could recall his name only after insistence, certainly disoriented regarding other questions. LABORATORY AND DIAGNOSTIC DATA: White cell count has increased to 5.9, hemoglobin 7.7, MCV 101, platelets 92,000, 81% neutrophils, 6% lymphocytes. Potassium 3.3, creatinine 1.92 and now creatinine is 1.56, sodium 150. Microbiology with MRSA from sputum sample. The sample had a polymicrobial otto with cocci and gram negative rods, gram positive rods as well, moderate wbc with 0-[address] scan of the chest with the findings described above, but no infiltrates, only effusions noted at the bases. 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 DISCUSSION: The differential diagnosis includes B-type lymphoma particularly, metastatic malignancy to the chest from either primary lung site or from an extrapulmonary site. An infection is less likely though and I do not think patient has evidence to suggest pneumonia at this point. I do not see any medication usually that can be associated with this kind of lymphadenopathy. In his list of meds, probably we will need a pulmonary consultation and bronchoscopy in an attempt at a diagnosis although he may not be eligible to treatment in view of poor functional status. I do not think that this abnormality has been identified in the past. I do not recommend treating the MRSA finding in the sputum. MTDD
--- NOTE | 2017-07-18 01:19 | CON ---
DATE OF CONSULTATION: 07/17/2017 REASON FOR CONSULTATION: Request for PEG tube placement. HISTORY OF PRESENT ILLNESS: Mr. Goldstein is an 87-year-old who was admitted to the hospital with [facility]. He has had a prior stroke. He has lived in a fpc for sometime. Apparently, he d oes not really ambulate on his own, but was feeding himself previously and conversing. Presently, he speaks in a stuttering speech. It is really difficult to ) understand what he is saying. It is unc lear if he knows where he is or what is going on otherwise, but he is awake and seems alert. He came with significant prerenal azotemia. He had a CAT scan that showed an old stroke and would not eat o r drink much. He had a CAT scan of his chest for unclear reasons, which shows massive adenopathy in the mediastinum up to 9 cm in size. Unable to give a history of any weight loss, night sweats, or ch ills from the patient or the son on the phone, who I talked to as well. The patient was cleared for pureed and thickened liquids by Speech Pathology. PAST MEDICAL HISTORY: Prior CVA, the patient lives in fpc prior to some seizure disorder an d CVA, dyslipidemia, hypertension, BPH, hypothyroidism, depression, and COPD. 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 HOME MEDICATIONS: Include Depakote, gabapentin, vitamin D, Cardura, Lasix, Lopressor, meloxicam, Darian max, levothyroxine, MiraLax, aspirin, Singulair, magnesium, and Lipitor. ALLERGIES: None known. PERSONAL HISTORY: The son is main decision maker. I have talked to him on the phone today. FAMILY HISTORY: Noncontributory. REVIEW OF SYSTEMS: Unable to be obtained. PHYSICAL EXAMINATION: GENERAL: This is a somewhat disheveled 87-year-old gentleman who is alert, but is unable to communic ate, he cannot tell me where he is right now. He stutters in his speech. VITAL SIGNS: Blood pressure 148/84, pulse 97, respirations 18. LUNGS: Clear. HEART: Regular rate and rhythm without clicks or murmurs. ABDOMEN: Soft, nontender. LABORATORY DATA: White count 5.9, hemoglobin 7.7, MCV 101, platelet count 92,000. Sodium 150, potas sium 3.8, BUN and creatinine are [address] scan of the chest was reviewed. There is a large m ass in the mediastinum, actually a couple, which are likely enlarged lymph nodes, they are noncalcifi ed, they are up to 9 cm in size. ASSESSMENT AND PLAN: The patient was eating on his own before he came here and he was admitted with failure to thrive and dehydration. I have asked to place a PEG on him. I think the bigger issue is that he seems to have a malignancy, likely lymphoma. I will get Pulmonary to look at this and see if they think that can be biopsied easily for diagnosis. This may really help the family to decide wha t to do in the prison. A PEG tube in the setting if a malignancy is not going to be treated, it i s probably a futile treatment and it may be better to move towards palliative care. In fact, the wayne burton's son informed me that he believes his father would wish to have no feeding tube placed if he kn ew he had an untreatable malignancy or condition that was going to progress fairly rapidly. Again, i f this is lymphoma, it may be something that will progress more slowly, but I think we should get an opinion from Pulmonary about feasability of making a diagnosis and see how that impacts our overall p lans before just moving to a PEG tube and discharge. I discussed this plan with the patient's son and he concurs. We will hold off on a PEG tube placemen t now and I will follow along with you.
[2017-07-18] MEDS: Levothyroxine Sodium 75 MCG TAB PO SCH (06:08)
--- NOTE | 2017-07-18 06:35 | CON ---
DATE OF CONSULTATION: 07/17/2017 HISTORY OF PRESENT ILLNESS: This is an 87-year-old gentleman, 184 pounds, 28 BMI, who has been in [facility], now here for several days. GI, Dr. Winston is consulted for insertion of PEG; however, re viewing his CT of his chest, he was concerned about his bulky adenopathy and the reason for consultat ion. The patient presented to the ER on July 14 with mental status change, he is on the [facility]. Patient is clearly unable to give any additional information at this time. Apparently, he able to feed himself, but presently he is unable to do so. His PEG was to be inserted by GI, but because of his abnormal CAT scan, this is being withheld. They are asking our opinion regarding his CT. He is a does not resuscitation. PAST MEDICAL HISTORY: Pertinent for seizure disorder, dementia, reflux, history of BPH, hypertension , arthritis, possibly CVA. prison medical records reviewed . PAST SURGICAL HISTORY: Some kind of a tumor in the spine, vasectomy. MEDICATIONS: His extensive list of medicine from the [facility], metoprolol 50 twice a day, meloxi cam 15, aspirin, magnesium, Lipitor 5, Singulair 10, Synthroid 25, gabapentin 300, Flomax 0.8, Flonas e, Zoloft 100, Depakote 250, tramadol 50 mg, gabapentin 100 3 times a day, guaifenesin, Lasix 20, Car dura 1. ALLERGIES: None. SOCIAL AND FAMILY HISTORY: Probably a former smoker with no history of recent tobacco abuse. REVIEW OF SYSTEMS: Unobtainable: PHYSICAL EXAMINATION: GENERAL: He is encephalopathic. Appears to be in mild distress. VITAL SIGNS: Respirations 14, sats 94-95%, blood pressure 148/84, respirations 18, temperature 98. NECK: No obvious adenopathy in the axillary or cervical areas. CHEST: No wheezing or crackles. CARDIAC: Normal S1-S2. No gallops. ABDOMEN: Soft. LABORATORY AND DIAGNOSTIC DATA: White count 5, H and H 7 and 24, platelet count is low at 92,000. Creatinine 1.56. Sodium 150. He has got MRSA in the sputum. His initial chest x-ray shows massive adenopathy, suprahilar paratracheal. There is nonspecific bibasilar infiltrates. CT of the chest co nfirms the above findings impressive bulky mediastinal adenopathy, paratracheal, subcarinal adenopath y, small pleural effusion, bibasilar atelectasis. IMPRESSION: 1. Bulky adenopathy, mediastinal, hilar, and subcarinal lymphoma with some metastatic disease. 2. Chronic obstructive pulmonary disease. 3. Dementia. 4. Dysphagia. 5. Renal failure. 6. Electrolyte imbalance. 7. Thrombocytopenia. The patient is a DNR. He is not a candidate for any form of treatment regarding his abnormal CT with out any tissue diagnosis. He has got MRSA in the sputum, which I will treat with oral antibiotics. Regarding insertion of PEG, there is no further treatment to be monitored for his extensive rather im pressive bilateral bulky mediastinal adenopathy. We would recommend comfort measures. I am in the process of discussing these findings with his son whose telephone is #[phone].
[2017-07-18 08:50] LABS: Hemoglobin 7.2 g/dL (14.0-18.0); Mean Corpuscular Hemoglobin 31.4 pg (27.0-31.0); Mean Platelet Volume 6.6 fL (7.4-10.4); Platelet Count 89 thou/uL (130-400); RBC Distribution Width 14.8 % (11.5-14.5)
[2017-07-18 09:01] LABS: Anion Gap 13 mmol/L (10-20); BUN (Urea Nitrogen) 29 mg/dL (8.4-25.7); Calc. Creatinine Clearance 43 mL/min (70-130); Calcium 10.3 mg/dL (7.8-10.44); Carbon Dioxide 20 mmol/L (23-31); Chloride 115 mmol/L (98-107); Estimated GFR-MDRD 45; Glucose 99 mg/dL (83-110); Sodium 144 mmol/L (136-145)
[2017-07-18 09:41] LABS: Band 2 % (5-11); Lymphocytes 10 % (21-51); MDiff Complete? YES; Monocytes 6 % (0-10); Neutrophil 82 % (42-75); PLT Morphology Comment Appears Decreased
[2017-07-18] MEDS: Enoxaparin Sodium 30 MG/0.3 ML SYRINGE SC SCH (09:55)
[2017-07-18] MEDS: Polyethylene Glycol 3350 17 GM Packet PO SCH (09:55)
[2017-07-18] MEDS: Docusate 100 MG CAP PO SCH ×2 (09:57→20:54)
[2017-07-18] MEDS: Tamsulosin HCl 0.4 MG CAP PO SCH ×2 (09:57→20:55)
[2017-07-18] MEDS: Famotidine 20 MG TAB PO SCH ×2 (09:57→20:54)
[2017-07-18] MEDS: Metoprolol Tartrate 25 MG TAB PO SCH ×2 (09:58→20:54)
[2017-07-18] MEDS: hydrALAZINE 25 MG TAB PO SCH ×3 (09:58→20:54)
--- NOTE | 2017-07-18 11:40 | PRG ---
DATE OF SERVICE: 07/18/2017 SUBJECTIVE: Patient was seen and examined at bedside and overnight events noted. Patient denies any shortness of breath or chest pain or palpitation. No history of nausea or vomiting or diarrhea or f ever or chills or cramps. OBJECTIVE: GENERAL: This is an elderly male in no apparent distress. VITAL SIGNS: Temperature 97.5, pulse 93, respiratory rate 20, blood pressure 160/80. HEENT: Atraumatic, normocephalic. Oral mucosa is moist. NECK: Supple. CARDIOVASCULAR: S1, S2 heard. Rate and rhythm regular. RESPIRATORY: Clear to auscultation. GASTROINTESTINAL: Abdomen is soft. MUSCULOSKELETAL: No tenderness. No edema. DERMATOLOGIC: No skin rash. NEUROLOGIC: Alert and awake and oriented x3. No focal neurologic deficits. Moving all the extremiti es. PSYCHIATRIC: Mood and affect normal. LABORATORY DATA: Potassium is 4.0, BUN 29, creatinine is 1.4. ASSESSMENT AND PLAN: 1. Acute kidney injury. Renal function is much better. 2. Hyponatremia, better. 3. Hyperchloremia, better. Continue free water supplementation. 4. Hypoalbuminemia. 5. Anemia. 6. Hypertension. 7. Renal function is stable. Sodium level is better. We will follow.
--- NOTE | 2017-07-18 12:07 | PDOC.PN ---
- Subjective Encounter Start Date: 07/18/17 Encounter Start Time: 10:25 Subjective: awakens to touch, not oriented -: follows simple verbal stimuli - Objective Resuscitation Status: Resuscitation Status DNR:Do Not Resuscitate MAR Reviewed: Yes Vital Signs & Weight: Vital Signs (12 hours) Temp Pulse Resp BP BP Pulse Ox 07/18/17 09:58 93 162/80 H 07/18/17 08:54 95 07/18/17 08:53 93 20 95 07/18/17 08:00 97.5 F L 93 20 162/80 H 95 07/18/17 01:03 95 07/18/17 01:02 94 L Weight Admit Weight 184 lb Weight 184 lb I&O: 07/17/17 07/18/17 07/19/17 06:59 06:59 06:59 Intake Total 3160 Output Total 1650 Balance 1510 Result Diagrams: 07/18/17 08:23 07/18/17 08:23 Additional Labs: Accuchecks 07/18/17 07/17/17 05:12 17:10 POC Glucose 104 124 H Phys Exam - Physical Examination HEENT: PERRLA, sclera anicteric Neck: no JVD, supple Respiratory: no wheezing, no rales Cardiovascular: RRR, no significant murmur Gastrointestinal: soft, non-tender, positive bowel sounds Musculoskeletal: no edema, pulses present Neurological: non-focal, moves all 4 limbs Dx/Plan (1) Sepsis Code(s): A41.9 - SEPSIS, UNSPECIFIED ORGANISM Status: Acute Qualifiers: Sepsis type: sepsis due to unspecified organism Qualified Code(s): A41.9 - Sepsis, unspecified organism (2) Severe dehydration Code(s): E86.0 - DEHYDRATION Status: Acute (3) Acute encephalopathy Code(s): G93.40 - ENCEPHALOPATHY, UNSPECIFIED Status: Acute (4) KIM (acute kidney injury) Code(s): N17.9 - ACUTE KIDNEY FAILURE, UNSPECIFIED Status: Acute (5) Metabolic acidosis Code(s): E87.2 - ACIDOSIS Status: Acute (6) FTT (failure to thrive) in adult Status: Chronic (7) Moderate protein malnutrition Code(s): E44.0 - MODERATE PROTEIN-CALORIE MALNUTRITION Status: Chronic (8) Anemia Code(s): D64.9 - ANEMIA, UNSPECIFIED Status: Chronic (9) H/O: CVA (cerebrovascular accident) Code(s): Z86.73 - PRSNL HX OF TIA (TIA), AND CEREB INFRC W/O RESID DEFICITS Status: Chronic 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 Review of Systems - Medications/Allergies Allergies/Adverse Reactions: Allergies Allergy/AdvReac Type Severity Reaction Status Date / Time No Known Allergies Allergy Unverified 07/14/17 15:28 Medications: Current Medications Acetaminophen (Tylenol) 650 mg PO Q4H PRN PRN Reason: Headache/Fever or Pain Albuterol/Ipratropium (Duoneb) 3 ml NEB [id number] [facility] Last Admin: 07/18/17 08:53 Dose: 3 ml Aspirin (Aspirin Chewable) 81 mg PO DAILY [facility] Last Admin: 07/18/17 09:58 Dose: 81 mg Divalproex Sodium (Depakote Er) 250 mg PO BID [facility] Last Admin: 07/18/17 09:57 Dose: 250 mg Docusate Sodium (Colace) 100 mg PO BID [facility] Last Admin: 07/18/17 09:57 Dose: 100 mg Doxazosin Mesylate (Cardura) 1 mg PO HS [facility] Last Admin: 07/17/17 20:31 Dose: 1 mg Enoxaparin Sodium (Lovenox) 30 mg SC 0900 [facility] Last Admin: 07/18/17 09:55 Dose: 30 mg Famotidine (Pepcid) 20 mg PO BID [facility] Last Admin: 07/18/17 09:57 Dose: 20 mg Guaifenesin/Dextromethorphan (Robitussin Dm) 15 ml PO Q4H PRN PRN Reason: Cough Hydralazine HCl (Apresoline) 25 mg PO TID [facility] Last Admin: 07/18/17 09:58 Dose: 25 mg Cefepime HCl 1 gm/Miscellaneous Medication 1 each/ Sterile Water 10 mls @ 120 mls/hr SLOW IVP Q24HR@1600 [facility] Last Admin: 07/17/17 18:41 Dose: 10 mls Dextrose/Sodium Chloride (D5 1/4 Ns) 1,000 mls @ 100 mls/hr IV .Q10H [facility] Levothyroxine Sodium (Synthroid) 75 mcg PO 0600 [facility] Last Admin: 07/18/17 06:08 Dose: 75 mcg Metoprolol Tartrate (Lopressor) 25 mg PO BID [facility] Last Admin: 07/18/17 09:58 Dose: 25 mg Montelukast Sodium (Singulair) 10 mg PO QPM [facility] Last Admin: 07/17/17 20:30 Dose: 10 mg Polyethylene Glycol (Miralax) 17 gm PO DAILY [facility] Last Admin: 07/18/17 09:55 Dose: 17 gm Sertraline HCl (Zoloft) 100 mg PO DAILY [facility] Last Admin: 07/18/17 09:57 Dose: 100 mg Tamsulosin HCl (Flomax) 0.4 mg PO BID [facility] Last Admin: 07/18/17 09:57 Dose: 0.4 mg
[2017-07-18] MEDS: D5 1/4 NS 1,000 ML IV SCH (13:07)
--- NOTE | 2017-07-18 16:12 | CT ---
ABDOMEN CT WITHOUT CONTRAST: PELVIS CT WITHOUT CONTRAST: HISTORY: Lymphoma. Acute kidney insufficiency upon admission. COMPARISON: None. TECHNIQUE: Abdomen and pelvis CT is performed without contrast. Coronal reformatted images are submitted for in terpretation. The examination is markedly limited by lack of IV and oral contrast, as well as due to significant mo tion degradation. FINDINGS: CHEST: Moderate bilateral effusion with adjacent consolidation due to atelectasis or pneumonia. Two separate nodules in the left lower lobe, measuring 6 and 7 mm. There is a small amount of pericardi al fluid. Calcifications of the coronary arteries, mitral valve, and aortic valve are suggested. Limited evaluation of the solid organs. Grossly, no solid organ abnormality. There is CT evidence of cholelithiasis without definite evidence of cholecystitis. Limited evaluation of the alimental canal due to lack of oral contrast. No definite evidence of michel l obstruction. Multiple normal caliber small bowel loops are identified. The ileocecal junction is normal. Scattered material in a nondistended, nondilated colon. There is evidence of divertic ulosis without evidence of diverticulitis. In the cecum, there is dependent and nondependent air, wh ich likely represents interface of stool with adjacent mucosa. There is no evidence of bowel wall th ickening or definite extraluminal air. Evaluation is limited by motion degradation. There is sugges tion of a normal caliber appendix emanating from the cecal apex. There is no mesenteric mass, free air, or significant free fluid. A trace amount of fluid in both pe ricolic gutters. Hypodensities in the right kidney are limited in the evaluation due to motion and are felt to be due to a combination of simple and complex cysts. Bilaterally, no obstructive uropathy. There is evidence of extensive retroperitoneal lymphadenopathy. There are enlarged periaortic, aorto caval, and peripancreatic lymph nodes. The pericaval lymph node measures 2.9 x 2.7 cm. There are e nlarged bilateral common iliac and external iliac lymph node. Steelworker right common iliac lymp h node measures 3.4 x 3.1 cm. Enlarged right external iliac lymph node measures 6.4 x 5.3 cm. Addit ional lymph nodes are noted. There is atherosclerosis of the aorta. There is focal prominence of the infrarenal abdominal aorta, measuring 4.6 x 4 cm. PELVIS: There is evidence of lymphadenopathy. The urinary bladder is decompressed. There is fecal material in the sigmoid colon. There is nonspecific presacral fat stranding. There are no lytic or blastic lesions in the osseous structures. IMPRESSION: 1. Markedly limited evaluation due to motion degradation. No evidence of bowel obstruction. 2. Air attenuation along the periphery of the cecum likely representing the interface of the colon a nd adjacent fecal material. Evaluation is markedly limited by motion degradation. Pneumatosis canno t be excluded but is less favored. If there is concern, consider repeat examination with oral contra st. 3. Bilateral pleural effusion with adjacent consolidation, likely due to pneumonia or atelectasis. 4. Two separate nodules in the left lung. Consider CT chest. 5. 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 POS: MARY
--- NOTE | 2017-07-18 18:26 | PRG ---
DATE OF SERVICE: 07/18/2017 Mr. Goldstein is a little more awake today. He has difficulty expressing himself. He stutters a lot, but does able to communicate. I have also talked with the son today. I have confirmed that he is n onambulatory in the jail setting. I have talked with his hospital doctor, Dr. Holloway. He was seen by Dr. Marques yesterday, who felt that he had bulky mediastinal adenopathy, which is probab ly metastatic. He was not a candidate for chemotherapy treatment regarding his abnormal CT even with out a tissue diagnosis. Dr. Marques felt that palliative care would be reasonable as we had discussed. Comfort measures were recommended. I have talked to the patient's son again today. He states that if the patient actively request a fee ding tube be placed, then he would support that decision, but he if cannot express that then he wants to move more to palliative care, because based on the conversations he has had with his father in past. OBJECTIVE: VITAL SIGNS: Temperature is 97, pulse 93, blood pressure 162/80. LUNGS: Coarse rhonchi. He has got some food on his shirt. Nurses report that he is coughing quite a bit with eating. He has got some slight stridor lung. ABDOMEN: Soft and nontender. He has a hard right inguinal adenopathy. IMAGING: CAT scan of the abdomen today showed large right inguinal adenopathy as well as some other periaortic nodes. LABORATORY DATA: White count 6, hemoglobin 7.2, platelet count 89,000. ASSESSMENT: 1. Large bulky firm adenopathy in the right inguinal area, chest, and abdomen. Statistically, this would most likely be lymphoma, although other metastatic malignancies would be possible. I have told the patient today that he likely has a malignancy and there is really much that can be offered in way of treatment. Based on his very poor functional status, it was difficult to understand his res ponse to this. I did tell him we would keep him comfortable. 2. Dysphagia, likely related to bulky adenopathy in the mediastinum. RECOMMENDATIONS: At this point in time I have talked with the patient and the son. The patient is a ble to give equivocal response what he would like in terms of treatment, the son informs me that he h as power of patent prosecution attorney, and if his father has what was felt to be malignancy that is not treatable and that he does not want him to have a feeding tube placed if the patient cannot express a desire to hav e it placed because in their previous conversation he stated he did not want feeding tubes placed. A t this time, we will sign off. I think it would be reasonable to consult palliative care in this nadeem e. If I can be of any further assistance, please do not hesitate to contact me.
[2017-07-18] MEDS: Doxazosin Mesylate 1 MG TAB PO SCH (20:54)
[2017-07-18] MEDS: Montelukast Sodium 10 mg Tablet PO SCH (20:54)
[2017-07-19] MEDS: D5 1/4 NS 1,000 ML IV SCH ×2 (00:50→08:57)
[2017-07-19 04:34] LABS: #Eosinphils 0.1 thou/uL (0.0-0.7); #Monocytes 0.8 thou/uL (0.11-0.59); #Neutrophils 4.1 thou/uL (1.40-6.50); %Basophils 0.2 % (0.0-1.0); %Lymphocytes 15.7 % (21.0-51.0); %Monocytes 13.9 % (0.0-10.0); %Neutrophils 68.3 % (42.0-75.0); Hemoglobin 7.6 g/dL (14.0-18.0); Mean Corpuscular HGB CONC 32.7 g/dL (32.0-36.0); Mean Corpuscular Hemoglobin 32.9 pg (27.0-31.0); Mean Platelet Volume 7.1 fL (7.4-10.4); Platelet Count 95 thou/uL (130-400); RBC Distribution Width 14.8 % (11.5-14.5); Red Blood Cell (RBC) Count 2.31 mill/uL (4.70-6.10)
[2017-07-19 04:55] LABS: Anion Gap 14 mmol/L (10-20); BUN (Urea Nitrogen) 32 mg/dL (8.4-25.7); Calc. Creatinine Clearance 43 mL/min (70-130); Calcium 10.1 mg/dL (7.8-10.44); Carbon Dioxide 18 mmol/L (23-31); Chloride 113 mmol/L (98-107); Estimated GFR-MDRD 44; Glucose 79 mg/dL (83-110); Sodium 141 mmol/L (136-145)
[2017-07-19] MEDS: Levothyroxine Sodium 75 MCG TAB PO SCH (05:40)
[2017-07-19] MEDS: Tamsulosin HCl 0.4 MG CAP PO SCH (08:50)
[2017-07-19] MEDS: hydrALAZINE 25 MG TAB PO SCH (08:50)
[2017-07-19] MEDS: Docusate 100 MG CAP PO SCH (08:50)
[2017-07-19] MEDS: Metoprolol Tartrate 25 MG TAB PO SCH (08:50)
[2017-07-19] MEDS: Famotidine 20 MG TAB PO SCH (08:50)
[2017-07-19] MEDS: Polyethylene Glycol 3350 17 GM Packet PO SCH (08:53)
[2017-07-19] MEDS: Enoxaparin Sodium 30 MG/0.3 ML SYRINGE SC SCH (08:55)
[2017-07-19 08:58] VITALS: BP 154/80
[2017-07-19 11:41] VITALS: TEMP 99.3
--- NOTE | 2017-07-19 12:05 | PDOC.PN ---
- Subjective Encounter Start Date: 07/19/17 Encounter Start Time: 07:45 Subjective: awakens to touch -: not in distress - Objective Resuscitation Status: Resuscitation Status DNR:Do Not Resuscitate MAR Reviewed: Yes Vital Signs & Weight: Vital Signs (12 hours) Temp Pulse Resp BP Pulse Ox 07/19/17 08:50 89 154/80 H 07/19/17 08:00 99.3 F 86 18 94 L 07/19/17 06:41 90 18 100 07/19/17 04:00 94 L Weight Admit Weight 184 lb Weight 184 lb I&O: 07/18/17 07/19/17 07/20/17 06:59 06:59 06:59 Intake Total 2930 Output Total 400 Balance 2530 Result Diagrams: 07/19/17 03:26 07/19/17 03:26 Phys Exam - Physical Examination HEENT: PERRLA, moist MMs Neck: no JVD, supple Respiratory: no wheezing, no rales Cardiovascular: RRR, no significant murmur Gastrointestinal: soft, non-tender, positive bowel sounds Musculoskeletal: no edema, pulses present Neurological: non-focal, moves all 4 limbs Dx/Plan (1) Sepsis Code(s): A41.9 - SEPSIS, UNSPECIFIED ORGANISM Status: Resolved Qualifiers: Sepsis type: sepsis due to unspecified organism Qualified Code(s): A41.9 - Sepsis, unspecified organism (2) Severe dehydration Code(s): E86.0 - DEHYDRATION Status: Acute (3) Acute encephalopathy Code(s): G93.40 - ENCEPHALOPATHY, UNSPECIFIED Status: Resolved (4) KIM (acute kidney injury) Code(s): N17.9 - ACUTE KIDNEY FAILURE, UNSPECIFIED Status: Acute (5) Metabolic acidosis Code(s): E87.2 - ACIDOSIS Status: Acute (6) FTT (failure to thrive) in adult Status: Chronic (7) Moderate protein malnutrition Code(s): E44.0 - MODERATE PROTEIN-CALORIE MALNUTRITION Status: Chronic (8) Anemia Code(s): D64.9 - ANEMIA, UNSPECIFIED Status: Chronic (9) H/O: CVA (cerebrovascular accident) Code(s): Z86.73 - PRSNL HX OF TIA (TIA), AND CEREB INFRC W/O RESID DEFICITS Status: Chronic Comment: old left frontal lobe cva (10) Hypoglycemia Code(s): E16.2 - HYPOGLYCEMIA, UNSPECIFIED Status: Resolved (11) Dysphagia Code(s): R13.10 - DYSPHAGIA, UNSPECIFIED Status: Chronic Comment: on thickened diet at snf - Plan dc pt to snf with hospice -: poor overall prognosis with ongoing aspiration -: adv age, prior cva and likely lymphoma * . Review of Systems - Medications/Allergies Allergies/Adverse Reactions: Allergies Allergy/AdvReac Type Severity Reaction Status Date / Time No Known Allergies Allergy Unverified 07/14/17 15:28
--- NOTE | 2017-07-19 13:33 | DIS ---
DATE OF ADMISSION: 07/14/2017 DATE OF DISCHARGE: 07/19/2017 DISCHARGE DISPOSITION: To intermediate with hospice. 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 PROCEDURES DONE DURING HOSPITALIZATION: The patient has had chest x-ray done which did not reveal any infiltrate. CT brain done showed old left frontal lobe CVA with encephalomalacia, has diffuse cortical atrophy and deep white matter ischemic changes. No acute infarct was seen. Echo with 2D Doppler showed EF of 55% to 60%. There was diastolic dysfunction. CT chest showed bulky mediastinal adenopathy, bilateral pleural effusions, small pericardial effusion, cholelithiasis. CT of the abdomen and pelvis done showed bilateral pleural effusion with adjacent consolidation likely due to pneumonia or atelectasis. Two separate nodules in the left lung, extensive intraabdominal and pelvic lymphadenopathy with likely lymphoma. Blood cultures x2 no growth. Influenza A and B antigens were negative. Discharge H&H 7 and 23, platelet count is 95, white count of 6, MCV is 101. Discharge BUN and creatinine is 32 and 1.5. An initial serum glucose of 69 on admission with a BUN and creatinine of 52 and 2.0. Troponin I was 0.04. BNP was 937, albumin was 2.3. TSH 4.16. DISCHARGE MEDICATIONS: Depakote extended release 250 mg twice daily, Cardura 1 mg at bedtime, gabapentin 300 mg at bedtime, DuoNeb q.6 hourly, levothyroxine 25 mcg at bedtime, Lopressor 50 mg twice daily, Singulair 10 mg daily, MiraLax 17 grams twice daily, sertraline 100 mg daily, Flomax 0.8 mg at bedtime, Ultram p.r.n. for pain. ALLERGIES: No known drug allergies. INPATIENT CONSULTS: Dr. Winston for Gastroenterology, Dr. Marques for Pulmonology, Dr. Angel for Infectious Disease. BRIEF COURSE DURING HOSPITALIZATION: The patient initially was sent from [facility] for increased confusion and lethargy with responding only to painful stimuli. He was found to be severely dehydrated with acute kidney injury and hypoglycemia. The patient was gently hydrated and was on D5 water drip. Multiple electrolyte abnormalities were corrected. The patient has prior history of stroke with dysphagia and was on thickened liquids at the intermediate. His sputum culture grew MRSA. Hence, a CT chest was obtained as prior x-ray did not reveal any infiltrate. CT chest showed bulky mediastinal lymphadenopathy. The patient was aspirating even on 35% of meals that he was taking in. In view of this, a consultation with Dr. Winston was requested for possible PEG tube. The patient also subsequently had a CT of the abdomen and pelvis done, which showed multiple lymph nodes around the aorta and inguinal area. He also had multiple retroperitoneal lymph nodes. In view of his age of 87 years with multiple medical issues and poor functional status, the patient was not a candidate for chemo or radiation therapy. This was communicated to his son, Mr. Steve Weeks. He did not want any further workup for the suspected lymphoma nor did he want PEG tube to be placed for his father. The patient's father apparently had told him that he did not want any resuscitative measures including feeding tube if he were to have terminal condition. He was already a DNR. In view of this and poor prognosis, hospice consultation was requested. The patient will be shortly discharged back to intermediate with hospice. I have communicated all the above findings to his primary care physician, Dr. Garces. A total of 35 minutes was spent on discharge plan. Please see a [id number] documentation on [facility] for the day of discharge. [facility]
--- NOTE | 2017-07-19 18:18 | PRG ---
DATE OF SERVICE: 07/19/2017 SUBJECTIVE: Patient was seen and examined at bedside and overnight events noted. Patient denies any shortness of breath or chest pain or palpitation. No history of nausea or vomiting or diarrhea or fever or chills or cramps. OBJECTIVE: GENERAL: This is an elderly male, in no apparent distress. VITAL SIGNS: Temperature 99.3, pulse 83, respiratory rate 18, blood pressure 154/80. HEENT: Atraumatic, normocephalic, Oral mucosa is moist NECK: Supple CARDIOVASCULAR: S1S2 heard, Rate and rhythm regular RESPIRATORY: Clear to auscultation GASTROINTESTINAL: Abdomen is soft MUSCULOSKELETAL : No tenderness, No edema DERMATOLOGIC : No skin rash NEUROLOGIC: Alert and awake and oriented X3, No focal neurologic deficits. Moving all the extremities . PSYCHIATRIC: Mood and affect normal LABORATORY DATA: Potassium is 4.0, BUN is 32, creatinine is 1.5. ASSESSMENT AND PLAN: 1. Acute kidney injury. Renal function is stable. 2. Hypernatremia. 3. Hyperkalemia. 4. Hyperalbuminemia. 5. Anemia. 6. Hypertension. 7. Electrolytes are stable. Her renal function is stable.
== END 2017-07-19 11:49 | disposition hospice, inpatient (51) | DRG 871 ==
LOC: ERS 10:22 → T4-B 13:34
PROVIDERS: ADMIT Internal Medicine; ATTEND Internal Medicine
DX: A41.9 Sepsis, unspecified organism (principal); G93.40 Encephalopathy, unspecified; J90 Pleural effusion, not elsewhere classified; N17.9 Acute kidney failure, unspecified; E44.0 Moderate protein-calorie malnutrition; C85.98 Non-Hodgkin lymphoma, unspecified, lymph nodes of multiple sites; D69.6 Thrombocytopenia, unspecified; E87.0 Hyperosmolality and hypernatremia; E87.2 Acidosis; E87.1 Hypo-osmolality and hyponatremia; R65.20 Severe sepsis without septic shock; N18.3 Chronic kidney disease, stage 3 (moderate); B95.62 Methicillin resistant Staphylococcus aureus infection as the cause of diseases classified elsewhere; E87.5 Hyperkalemia; E86.0 Dehydration; E78.5 Hyperlipidemia, unspecified; N40.0 Benign prostatic hyperplasia without lower urinary tract symptoms; E03.9 Hypothyroidism, unspecified; F32.9 Major depressive disorder, single episode, unspecified; J44.9 Chronic obstructive pulmonary disease, unspecified; Z79.82 Long term (current) use of aspirin; Z87.891 Personal history of nicotine dependence; G31.9 Degenerative disease of nervous system, unspecified; Z66 Do not resuscitate; D64.9 Anemia, unspecified; E87.6 Hypokalemia; I12.9 Hypertensive chronic kidney disease with stage 1 through stage 4 chronic kidney disease, or unspecified chronic kidney disease; Z68.28 Body mass index [BMI] 28.0-28.9, adult; R62.7 Adult failure to thrive; I69.398 Other sequelae of cerebral infarction; G93.89 Other specified disorders of brain; E16.2 Hypoglycemia, unspecified; Z51.5 Encounter for palliative care; R13.10 Dysphagia, unspecified; G40.909 Epilepsy, unspecified, not intractable, without status epilepticus
CPT/HCPCS: 36415; 36416; 51702; 70450; 71010; 71250; 74176; 80048; 80053; 80164; 81003; 81015; 82140; 82550; 82553; 83605; 83690; 83880; 84439; 84443; 84481; 84484; 85025; 87040; 87070; 87086; 87186; 87205; 90471; 90682; 93005; 93306; 94640; 96360; A4216; G0008; G8978-GP-CM; G8979-GP-CK; G8996-GN-CK; G8997-GN-CJ; J0692; J1650; J1956; J3370; J7042; J7050; J7070; J7620; Q2036